=== PATIENT | female | born 1975 | race Caucasian/White ===

== ENCOUNTER → 2023-10-21 09:04 | Outpatient (CLI) | payer OTHER, MEDICAID, SELFPAY ==
--- NOTE | 2023-10-21 | DI.RAD.S_ITS ---
PROCEDURE: XR HAND LT MIN 3V INDICATIONS: Localized swelling, mass and lump, left upper limb TECHNIQUE: 3 views of the hand(s) acquired. COMPARISON: None. FINDINGS: Bones: No fractures or dislocations. Carpal bones are normally aligned. No suspicious bony lesions. No osseous erosion, osteolysis or periosteal reaction. Marked 1st CMC joint space narrowing and juxta-articular osteophytosis with adjacent osteophyte/loose body. Soft tissues: No suspicious soft tissue calcifications. Soft tissue protrusion in the dorsal aspect of the 2nd middle phalanx. IMPRESSION: 1. Soft tissue protrusion in the dorsal aspect of the 2nd middle phalanx with no underlying osseous abnormality. If clinical symptoms persist, consider targeted ultrasound for further evaluation. 2. 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 Dictated by: Nnamdi Torres M.D. on 10/21/2023 at 12:49 Approved by: Nnamdi Torres M.D. on 10/21/2023 at 12:52
== END ==
LOC: RAD 09:07
PROVIDERS: PCP Nurse Practitioner Family; Referring Provider Nurse Practitioner Family; Visit Provider Nurse Practitioner Family
DX: M18.12 Unilateral primary osteoarthritis of first carpometacarpal joint, left hand (principal); R22.32 Localized swelling, mass and lump, left upper limb
CPT/HCPCS: 73130